=== PATIENT | female | born 1985 | race Asian ===

== ENCOUNTER → 2025-01-29 | Outpatient (CLI) | payer MEDICAID, SELFPAY ==
--- NOTE | 2025-01-29 10:00 | XR_ITS ---
Examination: Screening digital mammography, bilateral Computer aided detection 3-D breast Tomosynthesis, bilateral Date and time of exam: January 29, 2025 at 0946 hours No priors Indication: Screening Technique: Nonmagnified MLO, CC views of the breasts to been obtained, reconstructed from 3-D Tomosynthesis images. R2 computer aided detection program utilized for evaluation of suspicious masses and/or abnormal calcifications. 3-D Tomosynthesis images obtained. Findings: Scattered areas of fibroglandular density Intact implants 6 mm circumscribed nodule retroareolar region left breast IMPRESSION: BI-RADS Category 0: Incomplete: Need additional imaging evaluation 6 mm circumscribed nodule retroareolar region left breast, recommend follow-up spot tomographic views retroareolar region left breast left breast sonography to complete the workup
== END | disposition home or self-care (01) ==
PROVIDERS: Referring Provider Specialist; Visit Provider Specialist
DX: Z12.31 Encounter for screening mammogram for malignant neoplasm of breast (principal); N63.42 Unspecified lump in left breast, subareolar
CPT/HCPCS: 77063; 77067

== ENCOUNTER → 2025-02-03 | Outpatient (CLI) | payer MEDICAID, SELFPAY ==
--- NOTE | 2025-02-03 10:02 | XR_ITS ---
Examination: Diagnostic digital mammography, unilateral, left Computer aided detection 3-D breast Tomosynthesis, unilateral Date and time of exam: 02/03/2025, 10:26 AM Comparisons: 01/29/2025 Indications: Further evaluation of abnormality seen on recent screening exam. Technique: Nonmagnified MLO, CC views of the left breast have been obtained, reconstructed from 3-D Tomosynthesis images. R2 computer aided detection program utilized for evaluation of suspicious masses and/or abnormal calcifications. 3-D Tomosynthesis images obtained. Technologist: Findings: There are scattered areas of fibroglandular density. No evidence of abnormal masses or suspicious calcifications. The previously described abnormality does not persist on spot compression views and represents superimposition of normal fibroglandular tissue. Impression: BI-RADS category 2: Benign findings Recommend 1 year follow-up mammogram
--- NOTE | 2025-02-03 10:02 | XR_ITS ---
Examination: Breast ultrasound, unilateral, left Date and time of exam: February 03, 2025 1012 hrs. Indications: Mammogram January 29, 2025 6 mm nodule retroareolar region left breast Technique: Real-time meek scale ultrasonographic imaging performed left breast including all 4 quadrants as well as nipple retroareolar and axillary region. Findings: No cystic or solid mass Impression: BI-RADS Category 1: Negative study
== END | disposition home or self-care (01) ==
PROVIDERS: PCP Family Medicine; Referring Provider Specialist; Visit Provider Specialist
DX: R92.322 Mammographic fibroglandular density, left breast (principal)
CPT/HCPCS: 76641; 77061; 77065; G0279

== ENCOUNTER 2025-03-16 05:40 | Day surgery (SDC) | payer MEDICAID, SELFPAY ==
--- NOTE | 2025-03-12 10:12 | ESHP_ITS ---
RE: ELVIE TAYLOR : 1985 DATE OF ADMISSION: 03/16/2025 HISTORY OF PRESENT ILLNESS: This is a 39-year-old 4, para 3-0-1 3 who is multiparous, desires voluntary sterilization. She is aware of the reversible methods of control and she declines those options. She is aware that vasectomy is simpler, easier and safer with a lower failure rate, but she declines that option. She is currently on a progestin-only control pill. She reports regular cyclic menses. She denies any chronic pelvic pain. PAST MEDICAL HISTORY: Hypothyroidism, cervical dysplasia, depression, iron deficiency anemia. PAST SURGICAL HISTORY: Shoulder surgery in 2017. ALLERGIES: LACTOSE. MEDICATIONS: Sonja control pill 0.35 mg 1 p.o. daily. SOCIAL HISTORY: She is . She denies any alcohol, drug use, or smoking. FAMILY HISTORY: Depression and anxiety. OBSTETRIC HISTORY: Three previous full-term normal vaginal deliveries and one spontaneous at 6 weeks' gestation without D and C. REVIEW OF SYSTEMS: She denies any chest pain, palpitations, cough, fever, shortness of breath, or lower extremity pain. PHYSICAL EXAMINATION: VITAL SIGNS: Blood pressure 110/70 mmHg, heart rate 88, respirations 16, and temperature 98.6. HEENT: Oropharynx and sclerae are clear. LUNGS: Clear to auscultation bilaterally. HEART: Regular rate and rhythm. ABDOMEN: Nontender. EXTREMITIES: Nontender. SKIN: No gross rashes or lesions. NEUROLOGIC: No focal deficits. ASSESSMENT: Multiparity, desires voluntary sterilization. PLAN: Laparoscopic bilateral salpingectomy. Informed consent was obtained. The patient was made aware of the risks, complications, alternatives, and benefits of the proposed procedure and she agrees. She is aware of the failure rate and the increased risk of tubal ectopic gestation if occurs. She is aware that vasectomy is simpler, easier and safer with a lower failure rate, but her male partner declines that option. She is aware of the risk of injury to bowel or bladder, uterus, ureters, adjacent organs, pulmonary embolism, deep vein thrombosis, injury to the vessels of the abdominal wall, hematoma, abscess, wound infection, wound dehiscence, pelvic infection, reoperation to repair injury to internal organs, anesthesia complications, the possibility that a laparotomy needs to be performed to complete the procedure or control bleeding and the possibility that the procedure is not able to be completed due to severe adhesions or technical difficulties. DT: 09:37:27 TT: 10:11:00 Ref: [id number] - TID: [id number] MTDD
[2025-03-15 09:01] VITALS: BMI 22.1
[2025-03-15 11:25] LABS: Basophils # (Auto) 0.1 Thou/mm3 (0.0-0.2); Basophils % (Auto) 1 % (0-2.5); Eosinophils # (Auto) 0.2 Thou/mm3 (0.0-0.5); Eosinophils % (Auto) 3 % (0-10); Hemoglobin 12.8 g/dL (12.0-16.0); Immature Granulocytes % (Auto) 0 % (0-0); Immature Granulocytes Auto 0.01 Thou/mm3 (0.00-0.00); Lymphocytes # (Auto) 2.2 Thou/mm3 (1.0-4.8); Lymphocytes % (Auto) 38 % (10-50); Mean Corpuscular HGB Conc 33.7 g/dl (31.0-37.0); Mean Corpuscular Hemoglobin 25.8 pg (25.0-35.0); Mean Corpuscular Volume 77 fL (80-100); Monocytes # (Auto) 0.4 Thou/mm3 (0.0-0.8); Monocytes % (Auto) 7 % (0-12); Neutrophils % (Auto) 52 % (37-80); Nucleated Red Blood Cell % 0 /100 WBC (0); Platelet Count 398 Thou/mm3 (140-440); RDW Standard Deviation 40.3 fL (36.4-46.3); Red Blood Count 4.96 Miln/mm3 (4.00-5.20); White Blood Count 5.7 Thou/mm3 (3.6-11.0)
[2025-03-15 11:33] LABS: Partial Thromboplastin Time 27.9 Seconds (22.0-36.0); Prothrombin Time 10.9 Seconds (9.0-12.2)
[2025-03-15 12:34] LABS: Alanine Aminotransferase 9 U/L (10-49); Albumin, Serum 4.8 gm/dL (3.5-5.0); Albumin/Globulin Ratio 1.7 (1.2-2.2); Alkaline Phosphatase 56 U/L (46-116); Anion Gap 7 (7-16); Aspartate Amino Transferase 16 U/L (0-34); BUN/Creatinine Ratio 21 Ratio (12-20); Beta HCG,Quantitative 1 mIU/mL (<5.0); Bilirubin,Total 2.5 mg/dL (0.3-1.2); Blood Urea Nitrogen 17 mg/dL (9-23); Calcium 9.2 mg/dL (8.3-10.6); Calcium (Corrected) 9.2 mg/dL (8.5-10.1); Carbon Dioxide 25.6 mMol/L (20.0-31.0); Chloride 106 mMol/L (98-107); Creatinine (Component) 0.8 mg/dL (0.6-1.3); Estimated Creatinine Clearance 69.8 mL/min (>60); Globulin 2.9 gm/dL (2.3-3.5); Glucose 94 mg/dL (74-106); Osmolality,Calculated 279 (275-295); Sodium 139 mMol/L (136-145); Total Protein 7.7 gm/dL (5.7-8.2); eGFR > 60 See Note
[2025-03-16] VITALS (8 sets, daily range): BP systolic 107–135; BP diastolic 65–89; PULSE 60–103; RESP 12–20; TEMP 36.2–36.4; O2SAT 96–100; BMI 21.9
--- NOTE | 2025-03-16 08:35 | SUR.PHASEI ---
pt received from OR in recovery bay 3. pt asleep but responds to voice, breathing unlabored on oxymask 6l. v/s stable. pt dressing to abd dermabond x3 and peripad cdi. report received from Peggy Phan Rn.
--- NOTE | 2025-03-16 09:07 | SUR.PHASEII ---
pt able to tolerate oral fluids without difficulty swallowing or nausea/vomiting.
--- NOTE | 2025-03-16 09:45 | SUR.PHASEII ---
pt awake and alert, breathing unlabored on room air. v/s stable. pt dressing to abd x3 and peripad cdi. pt able to ambulate to wheelchair with steady gait. d/c instructions given with Sai in room, all questions answered. pt d/c via wheelchair with all belongings.
--- NOTE | 2025-03-16 11:14 | ESOP_ITS ---
RE: ELVIE TAYLOR : 1985 PREOPERATIVE DIAGNOSIS: Multiparous, desires voluntary sterilization. POSTOPERATIVE DIAGNOSIS: Multiparous, desires voluntary sterilization. PROCEDURE PERFORMED: Laparoscopic bilateral salpingectomy. SURGEON: Terrance Raymundo DO. CLINICAL APPEALS AUDITOR: DOROTA Mayorga. ANESTHESIA: General endotracheal intubation. ANESTHESIOLOGIST: Dr. Peck. ESTIMATED BLOOD LOSS: 5 mL. COMPLICATIONS: None. COUNTS: Correct. PATHOLOGY: Left and right fallopian tubes. FINDINGS: Normal-appearing uterus, ovaries, and fallopian tubes. No evidence of endometriosis or pelvic adhesions. DESCRIPTION OF PROCEDURE: After proper informed consent was obtained and the patient was made aware of the risks, complications, alternatives, and benefits of the proposed procedure. She was taken to the operating room where she underwent induction of general anesthesia. She was placed in the dorsal lithotomy position. She was prepped and draped in a sterile fashion. A timeout was performed. The [place] uterine manipulator was placed. Attention was then turned to the abdomen where the physician regowned and gloved and a 5 mm incision was made in the umbilical fold with thinning of the abdomen. A Veress needle was inserted. Saline confirmed intraperitoneal placement. Artificial pneumoperitoneum was created to 12 mmHg. The Veress needle was then removed. A 5 mm trocar was inserted with tenting up to the abdomen. The laparoscope connected to the video camera and was then utilized to visualize the pelvis. A second incision was made in the midline 2 cm above the symphysis pubis. Through this 5 mm incision, a 5 mm trocar was inserted under direct visualization of the laparoscope. Using the blunt probe, the pelvis was visualized and a third incision was made in the left mid quadrant of the abdomen. Through this 5 mm incision, a 5 mm trocar was inserted under direct visualization of the laparoscope. Using the 1136 Harmonic scalpel and the [place] gut grasper, the right fallopian tube was grasped with a [place] gut grasper at the fimbriated end and using the Harmonic scalpel, the right salpingectomy was performed. Hemostasis was achieved. Specimens sent to Pathology. Attention was then turned to the left fallopian tube where the fimbriated end of the tube was grasped with a [place] gut grasper and using the Harmonic scalpel, the left salpingectomy was performed and specimen sent to Pathology. There was no bleeding at the end of the procedure. All instruments were removed from the abdomen. After the carbon dioxide was removed from the peritoneal cavity, the incisions were closed with 4-0 Monocryl and infiltrated with Marcaine and covered with Dermabond. Attention was then turned to the vagina where the [place] manipulator was then removed. All instruments were removed from the vagina. She was reversed from general anesthesia in the supine position and transferred to the recovery room in stable condition. She tolerated the procedure well. Counts were correct. DT: 08:28:45 TT: 11:13:00 Ref: [id number] - TID: [id number]
== END 2025-03-16 09:45 | disposition home or self-care (01) ==
PROVIDERS: Referring Provider Specialist; Visit Provider Specialist
PROC: (CPT 58670; principal; 2025-03-16 07:30)
DX: Z30.2 Encounter for sterilization (principal); E03.9 Hypothyroidism, unspecified; Z79.3 Long term (current) use of hormonal contraceptives
CPT/HCPCS: 58661; 36415; 80053; 84702; 85025; 85610; 85730; 86850; 86900; 86901; A4217; A4649; J0690; J1100; J2250; J2371; J2405; J2704; J3010; J3490; J1805